=== PATIENT | male | born 1970 | race Caucasian/White ===

== ENCOUNTER 2018-04-07 13:45 | Emergency (ER) | payer MEDICAID, MEDICARE, OTHER, SELFPAY ==
[~2018-04-07] VITALS: Ht 172.7 cm; Wt 62.2 kg
[2018-04-07 13:54] VITALS: BP 142/88
[2018-04-07] MEDS ORDERED: BACITRACIN ZINC OINT 500U/GM, 0.9 GM ONE (14:30)
== END 2018-04-07 14:51 | disposition home or self-care (01) ==
LOC: ED 14:45
DX: L03.90 Cellulitis, unspecified (principal); S50.811A Abrasion of right forearm, initial encounter; G89.29 Other chronic pain; M54.2 Cervicalgia; M54.9 Dorsalgia, unspecified; X58.XXXA Exposure to other specified factors, initial encounter; Y93.89 Activity, other specified; Y99.8 Other external cause status; Y92.009 Unspecified place in unspecified non-institutional (private) residence as the place of occurrence of the external cause
CPT/HCPCS: 99283